=== PATIENT | female | born 1990 | race Caucasian/White ===

== ENCOUNTER 2017-03-03 09:43 | Emergency (ER) | payer BC ==
[2017-03-03 09:53] VITALS: BP 123/80; TEMP 99.4; O2SAT 96
[2017-03-03] MEDS: CLINDAMYCIN HCL CAP 150 MG CAP PO ONE (10:06)
[2017-03-03] MEDS: ACETAMINOPHEN W/COD #3 TAB 1 EA TAB PO ONE (10:06)
--- NOTE | 2017-03-03 10:06 | ED.PDOC ---
History of Present Illness - General Chief Complaint: Dental/Mouth Stated Complaint: dental pain Time Seen by Provider: 03/03/17 09:54 Source: patient, RN notes reviewed, Vital Signs reviewed Exam Limitations: no limitations - History of Present Illness Initial Comments: Patient started with L upper tooth pain from a broken tooth 2 days ago. It has gotten progressively worse and now her gum around the tooth is swollen and painful. She is having chills and vomiting. Timing/Duration: getting worse - over past 2 days Improving Factors: nothing Worsening Factors: cold therapy, eating Associated Symptoms: fever/chills, malaise, nausea/vomiting Allergies/Adverse Reactions: Allergies Cefaclor [From Ceclor] Allergy (Unknown, Verified 12/21/15 20:03) Home Medications: Ambulatory Orders Acetaminophen W/ Codeine [Tylenol W/ CODEINE #3] 1 ea PO Q6HR PRN #15 03/03/17 Clindamycin HCl 300 mg PO TID #30 cap 03/03/17 Ondansetron [Zofran Odt] 4 mg PO Q6HR PRN #20 tab 03/03/17 Review of Systems - Review of Systems Constitutional: States: chills, malaise. Denies: diaphoresis, fever, weakness EENTM: States: see HPI, mouth pain, mouth swelling Respiratory: States: no symptoms reported Cardiology: States: no symptoms reported Gastrointestinal/Abdominal: States: nausea, vomiting. Denies: abdominal pain Musculoskeletal: States: no symptoms reported All other Systems: No Change from Baseline Past Medical History (General) - Patient Medical History Hx Congestive Heart Failure: No Hx Diabetes: No Hx Cancer: No Hx Hepatitis C: No Surgical History: no surgical history - Vaccination History Hx Tetanus, Diphtheria Vaccination: No Hx Influenza Vaccination: No Hx Pneumococcal Vaccination: No - Social History Hx Tobacco Use: Yes Hx Chewing Tobacco Use: No Hx Alcohol Use: No Hx Substance Use: No Hx Depression: No Hx Physical Abuse: No Hx Emotional Abuse: No Hx Suspected Abuse: No - Female History Patient is a Female of Child Bearing Age (10 -59 yrs old): Yes Patient : No Family Medical History - Family History Mother Living Status: Still Living Hx Family Congestive Heart Failure: Yes Hx Cardiac Disease: Yes Hx Family Diabetes: Yes Physical Exam - Physical Exam General Appearance: Alert, No apparent distress, Well Developed, Well Groomed, Well Hydrated, Well Nourished Ears, Nose, Throat: hearing grossly normal, normal pharynx, other - L upper jaw : broken molar with surrounding gum swelling and tenderness, no fluctuance or palpable abscess Neck: non-tender, full range of motion, supple, lymphadenopathy (L) Respiratory: lungs clear, normal breath sounds, no respiratory distress, no accessory muscle use Cardiovascular/Chest: regular rate, rhythm, no gallop, no murmur Extremity: normal range of motion, non-tender, normal inspection Neurologic: alert, normal mood/affect, oriented x 3 Skin Exam: diaphoresis Progress - Progress Progress: 03/03/17 10:08 Will start Clindamycin, Tyl #3 and zofran Departure - Departure Clinical Impression: Acute periodontitis, Infected dental caries Time of Disposition: 10:23 Disposition: Discharge to Home or Self Care Condition: Good Departure Forms: ED Discharge - Pt. Copy, Patient Portal Self Enrollment Instructions: Tooth Abscess Diet: resume usual diet Activity: increase activity as tolerated Prescriptions: Acetaminophen W/ Codeine [Tylenol W/ CODEINE #3] 1 ea PO Q6HR PRN #15 PRN Reason: Moderate To Severe Pain Ondansetron [Zofran Odt] 4 mg PO Q6HR PRN #20 tab PRN Reason: Nausea/Vomiting Clindamycin HCl 300 mg PO TID #30 cap Home Medications: Ambulatory Orders Acetaminophen W/ Codeine [Tylenol W/ CODEINE #3] 1 ea PO Q6HR PRN #15 03/03/17 Clindamycin HCl 300 mg PO TID #30 cap 03/03/17 Ondansetron [Zofran Odt] 4 mg PO Q6HR PRN #20 tab 03/03/17
[2017-03-03] MEDS: ONDANSETRON ODT 8 MG TAB SL ONE (10:07)
== END 2017-03-03 10:37 | disposition home or self-care (01) ==
LOC: ER 09:43
DX: K05.20 Aggressive periodontitis, unspecified (principal); Z87.891 Personal history of nicotine dependence; Z88.3 Allergy status to other anti-infective agents